=== PATIENT | male | born 1975 | race Caucasian/White ===

== ENCOUNTER 2020-11-28 13:32 | Emergency (ER) | payer SELFPAY ==
[~2020-11-28] VITALS: Ht 177.8 cm; Wt 77.8 kg
--- NOTE | 2020-11-28 14:17 | NUR ---
PT ON [employer] SINSUS, CONTINOUS SP02 AND CYCLE VS
--- NOTE | 2020-11-28 14:56 | NUR ---
1st contact with pt - he is a 45m complaining of 7/10 cp x 1 week. He had a tricuspid valve replacement in 2010. It is a constant crushing pain with no relief. He was seen at [facility] and had an overnight stay with a full cardiac workup. He states the pain never went away and was worse today which brought him to this ER. ED provider at bedside for eval and POC. Cardiac, sp02, and BP monitors in place. Call light within reach. Girlfriend at bedside.
[2020-11-28 15:20] LABS: BASOPHILS % (AUTO) 1 % (0-1); EOSINOPHILS % (AUTO) 2 % (1-7); LYMPHOCYTES % (AUTO) 29 % (22-44); MEAN CORPUSCULAR HGB CONC 33.8 g/dL (33.2-36.2); MEAN PLATELET VOLUME 7.5 fL (7.4-10.4); MONOCYTES % (AUTO) 10 % (2-9); NEUTROPHILS % (AUTO) 59 % (42-75); PLATELET COUNT 195 x10^3/uL (130-400); RED BLOOD COUNT 4.61 x10^6/uL (4.38-5.82); RED CELL DISTRIBUTION WIDTH 13.8 % (9.4-14.8)
[2020-11-28 15:23] LABS: MD NO
[2020-11-28] MEDS ORDERED: KETOROLAC 30 MG/1 ML IM ONE (15:30)
[2020-11-28 15:32] LABS: ALBUMIN 3.7 g/dL (3.4-5.0); ANION GAP 4 mmol/L (5-15); CHLORIDE 108 mmol/L (98-107)
[2020-11-28 15:39] LABS: ALANINE AMINOTRANSFERASE 28 U/L (12-78); ALKALINE PHOSPHATASE 95 U/L (45-117); BILIRUBIN,TOTAL 0.7 mg/dL (0.2-1.0); CREATININE 1.18 mg/dL (0.7-1.3); TOTAL PROTEIN 7.6 g/dL (6.4-8.2); TROPONIN I < 0.015 ng/mL (0.000-0.045)
[2020-11-28] MEDS ORDERED: KETOROLAC 30 MG/1 ML ONE (16:17)
[2020-11-28 16:49] VITALS: BP 124/74
== END 2020-11-28 16:53 | disposition home or self-care (01) ==
LOC: ED 15:30
DX: R07.89 Other chest pain (principal); I45.10 Unspecified right bundle-branch block; I49.3 Ventricular premature depolarization; R00.2 Palpitations; Z87.891 Personal history of nicotine dependence
CPT/HCPCS: 36415; 71045; 80053; 83880; 84443; 84484; 85025; 93005; 99285